=== PATIENT | male | born 1995 | race African-American/Black ===

== ENCOUNTER 2022-09-23 22:42 | Emergency (ER) | payer SELFPAY ==
[~2022-09-23] VITALS: Ht 185.4 cm; Wt 81.6 kg
[2022-09-23] MEDS ORDERED: AMOXICILLIN/CLAVULANATE K 875 MG TAB ONE (23:08)
[2022-09-23] MEDS ORDERED: AMOXICILLIN/CLAVULANATE K 875 MG TAB PO ONE (23:15)
[2022-09-23] MEDS ORDERED: AUGMENTIN 500-1 EACH PO (23:18)
[2022-09-23] MEDS ORDERED: IBUPROFEN600 MG PO (23:19)
== END 2022-09-23 23:46 | disposition home or self-care (01) ==
LOC: FSED 22:48
DX: K02.9 Dental caries, unspecified (principal)
CPT/HCPCS: 99283